=== PATIENT | male | born 1990 | race Caucasian/White ===

== ENCOUNTER 2024-04-19 09:48 | Emergency (ER) | payer OTHER, BC, SELFPAY ==
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
[2024-04-19 09:54] VITALS: BP 151/104; PULSE 105; TEMP 36.8; O2SAT 97
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
[2024-04-19] MEDS: KETOROLAC 30 MG/ML VIAL (*BKC) 15 MG IM (10:57)
[2024-04-19 11:56] VITALS: BP 148/101; PULSE 96; RESP 16; O2SAT 97
== END 2024-04-19 12:04 | disposition home or self-care (01) ==
PROVIDERS: Emergency Provider Student in an Organized Health Care Education/Training Program
DX: S82.142A Displaced bicondylar fracture of left tibia, initial encounter for closed fracture (principal); V03.10XA Pedestrian on foot injured in collision with car, pick-up truck or van in traffic accident, initial encounter
CPT/HCPCS: 73562; 73590; 96372; 99284; J1885